=== PATIENT | female | born 1955 | race Caucasian/White ===

== ENCOUNTER 2018-08-31 09:45 | Outpatient (CLI) ==
--- NOTE | 2018-09-01 08:50 | MAMMO ---
EXAM: Bilateral digital screening mammogram (2-D and 3-D) History: Screening Comparison: Bilateral mammogram 11/27/2014 Findings: MLO and CC views of bilateral breasts demonstrate scattered fibroglandular breast parenchy ma. CAD was reviewed by the radiologist. Tomosynthesis was performed. 1 cm mass within the left br east at 3 o'clock middle depth. No suspicious microcalcifications. Impression: Indeterminate 3 o'clock left breast mass. Recommend further evaluation with ultrasound. BIRADS 0, incomplete
== END 2018-08-31 09:46 | disposition home or self-care (01) ==
LOC: RAD 09:45
PROVIDERS: ATTEND Family Medicine
DX: Z12.31 Encounter for screening mammogram for malignant neoplasm of breast (principal)

== ENCOUNTER 2018-09-01 10:07 | Outpatient (CLI) ==
--- NOTE | 2018-09-01 10:58 | US ---
EXAM: Right upper quadrant abdominal ultrasound. History: Fatty liver. Technique: Multiple sonographic images through the abdomen were obtained. Color duplex Doppler was used to interrogate vascular flow. Findings: The liver is diffusely echogenic. No focal liver lesions identified sonographically. The liver is n ot enlarged according to the sonographic measurement given. There is antegrade flow within the main portal vein. The visualized pancreas demonstrates no abnormality. No abdominal ascites. No shadowi ng gallstones. Gallbladder wall is not thickened. Common bile duct measures 0.4 cm in caliber. Garza ited visualization of the right kidney demonstrates no evidence for hydronephrosis. Impression: Hepatic steatosis
== END 2018-09-01 10:08 | disposition home or self-care (01) ==
LOC: RAD 10:07
PROVIDERS: ATTEND Family Medicine
DX: K76.0 Fatty (change of) liver, not elsewhere classified (principal)